=== PATIENT | male | born 1990 ===

== ENCOUNTER 2024-11-04 18:23 | Emergency (ER) | payer BC, SELFPAY ==
[2024-11-04 18:48] VITALS: BP 154/67
[2024-11-04 19:18] LABS: Hematocrit 43.9 % (39.0-52.0); Hemoglobin 15.4 g/dL (13.0-18.0); Mean Corp Hgb Conc. 35.1 g/dL (33.0-37.0); Mean Corpuscular Volume 84.7 fL (80.0-94.0); Nucleated Red Blood Cells % 0 % (-); Platelet Count 203 10^3/uL (130-400); Red Cell Dist. Width 11.8 % (11.5-14.5)
[2024-11-04 19:19] LABS: Urine Character Clear (Clear)
[2024-11-04 19:42] LABS: Urine Squamous Cell 0-2 /LPF (Few)
[2024-11-04 19:43] LABS: Urine Red Blood Cell 50-60 /HPF (0-2); Urine White Cell 0-2 /HPF (0-5)
[2024-11-04 19:43] LABS: ALT (SGPT) 18 U/L (0-50); AST (SGOT) 23 U/L (17-59); Albumin 5.1 g/dl (3.5-5.0); Alkaline Phosphatase 66 U/L (38-126); Blood Urea Nitrogen 18 mg/dl (9-20); Calcium 10.0 mg/dl (8.4-10.2); Carbon Dioxide 26 mmol/L (22-30); Chloride 101 mmol/L (98-107); Glucose 94 mg/dl (70-99); Potassium 4.2 mmol/L (3.5-5.1); Sodium 137 mmol/L (135-145); Total Protein 8.0 g/dl (6.3-8.2); eGFR > 60.00
[2024-11-04 21:04] VITALS: BMI 27.2
[2024-11-04 21:07] VITALS: BP 143/87
--- NOTE | 2024-11-04 21:31 | ED.GENMED ---
History of Present Illness
General
Chief Complaint: Flank Pain
Time Seen by Provider: 11/04/24 20:44
History of Present Illness
History of Present Illness:
34-year-old male presents to the emergency department for evaluation of left flank pain that began this morning at approximately 9 AM. Has a history of kidney stones and symptoms feel comparable. No fevers or vomiting. Has never required surgery
for stones
Past History
Past History
ED Past Medical History: Other (Kidney stones)
ED Past Surgical History: None
Social History
Tobacco: Non-smoker
Alcohol: None
Drug: None
Living: with family
Employment: Employed
Family History
Family History: Other (Noncontributory)
Review of Systems
Review of Systems
Allergies reviewed?: Yes
All Other Systems: ROS reviewed and negative except as documented in HPI and ROS
Phy Exam
Physical Exam
Physical Exam:
GEN: Patient seen in bed in the room, visibly uncomfortable
HEENT: Oral mucosa moist, no scleral icterus
Cardiac: Regular rate
Lung: No respiratory distress, no tachypnea
MSK: No gross deformity or injuries
Skin: Good color, no pallor or jaundice, no rashes
Neuro: AO x3, moves all extremities freely
Psych: Calm, cooperative
Course
Orders/Labs/Results
Orders:
Orders
11/04/24 18:53
Complete Blood Count/With Diff Urgent
Comprehensive Metabolic Panel Urgent
11/04/24 19:03
Urinalysis Reflex To Culture Urgent
Date Specimen was Collected: 11/04/24
Time Specimen was Collected: 18:49
Urine Microscopic Reflex Cult Urgent
11/04/24 21:31
Ketorolac [Toradol] 15 mg IV NOW STA
Tamsulosin [Flomax] 0.4 mg PO NOW STA
11/04/24 22:32
CT Abd/pel Without Iv Or Oral Urgent
Comment:
Reason For Exam: flank pain
Abnormal Lab Results
11/04/24 11/04/24
18:53 19:03
WBC 12.5 H 10^3/uL
(4.8-10.8)
Absolute Neuts (auto) 10.7 H 10^3/uL
(1.4-6.5)
Absolute Lymphs (auto) 1.1 L 10^3/uL
(1.2-3.4)
Neutrophils % 86.0 H %
(42.2-75.2)
Lymphocytes % 8.6 L %
(20.5-51.1)
Creatinine 1.4 H mg/dL
(0.7-1.3)
Albumin 5.1 H g/dl
(3.5-5.0)
Ur Occult Blood Reflex 4+ A
(Negative)
Urine RBC 50-60 A /HPF
(0-2)
Urine Bacteria (Reflex) Few A
(Negative)
Urine Albumin (Reflex) 2+ A
(Neg - Trace)
11/04/24 18:53
11/04/24 18:53
Vital Signs
Initial and Last Documented VS:
Initial Vital Signs
Temp Pulse Resp BP Pulse Ox
98.2 F 74 15 154/67 98
11/04/24 18:48 11/04/24 18:48 11/04/24 18:48 11/04/24 18:48 11/04/24 18:48
Last Documented Vital Signs
Temp Pulse Resp BP Pulse Ox
98.2 F 70 17 135/78 100
11/04/24 18:48 11/04/24 22:19 11/04/24 22:19 11/04/24 22:19 11/04/24 22:19
MDM/Problems Addressed
MDM/Problems Addressed:
Imaging reveals a proximal left ureteral stone measuring 5 mm in size. After dose of IV Toradol the patient's symptoms are markedly improved. No symptoms concerning for infectious etiology and labs are reassuring. Will treat supportively with
expectant management, discussed supportive care and need for outpatient urology follow-up
*Pulse Oximetry
SaO2: 99
Oxygen Mode of Delivery: Room air
Patient hypoxic: no
*Critical Care Note
Total Time (30-74mins, 75-104mins- exclusive of procedures): Not Applicable
ED Attending Note
-
Portions of this chart may have been created with voice recognition software.� Occasional wrong word or��sound alike� substitutions may have occurred due to the inherent limitations of voice recognition software.
Discharge Plan
Departure
Patient Disposition: Home (Routine Discharge)
Date of Disposition: 11/04/24
Time of Disposition: 23:31
Patient with high blood pressure during this ER visit?: No
Discharge Problem:
Ureterolithiasis
Instructions: Kidney Stones (DC)
Prescriptions:
New
oxycodone 5 mg tablet
5 mg PO Q8H PRN (Reason: Pain) Qty: 8 0RF
ketorolac 10 mg tablet
10 mg PO Q8H 5 Days Qty: 15 0RF
Rx Instructions:
maximum total duration of 5 days from all oral, intranasal, or parenteral formulations
tamsulosin [Flomax] 0.4 mg capsule
0.4 mg PO HS Qty: 10 0RF
Referrals:
Sanchez Carias MD [Active, Urology]
Dylon Lawton DO [Family Provider, Family Practice]
Activity Restrictions/Additional Instructions:
Return to the emergency department if you develop a fever or worsening pain
Interventions
Interventions:
*Risk Screen - Suicide Last Done: 11/04/24 18:48
*General Assessment Last Done: 11/04/24 21:06
*Neglect/Abuse Screening Last Done: 11/04/24 18:48
*ED- Fall Risk Assessment Last Done: 11/04/24 21:06
*ED COVID-19 Vaccine History Last Done: 11/04/24 21:06
FS-Ylibxh-Wpuemgpscw Assessment Last Done: 11/04/24 21:08
ED-Male Genitourinary Assessment Last Done: 11/04/24 21:08
Discharge Date and Time
Print Language: [id number]
[2024-11-04] MEDS: TORADOL 15 MG IV ×2 (21:47→23:43)
[2024-11-04] MEDS: FLOMAX 0.4 MG PO (21:49)
[2024-11-04 22:19] VITALS: BP 135/78
[2024-11-04 23:40] VITALS: BP 141/92
[2024-11-04] MEDS: ROXICODONE 5 MG PO (23:45)
== END 2024-11-05 | disposition home or self-care (01) ==
LOC: EMR 18:23
PROVIDERS: Emergency Medicine; EMERGENCY PHYSICIAN Emergency Medicine; FAMILY PHYSICIAN Family Medicine
DX: N20.2 Calculus of kidney with calculus of ureter (principal); Z87.442 Personal history of urinary calculi
CPT/HCPCS: 99284; 96374; 96376; 74176; 80053; 81003; 81015; 85025

== ENCOUNTER → 2024-12-06 10:02 | Outpatient (REF) | payer BC, SELFPAY | LOC: RAD 10:02 | PROVIDERS: ATTENDING PHYSICIAN Specialist | DX: N20.1 Calculus of ureter (principal) | CPT/HCPCS: 74018 ==